=== PATIENT | male | born 1975 | race Caucasian/White ===

== ENCOUNTER 2022-09-15 23:51 | Inpatient (IN) | payer MEDICAID, OTHER ==
[~2022-09-15] VITALS: Ht 165.1 cm; Wt 65.8 kg
[2022-09-15 23:51] VITALS: BP 126/84
[2022-09-16 00:38] VITALS: BP 126/84
[2022-09-16 07:49] LABS: HEMATOCRIT. 40.9 % (42.0-52.0); HEMOGLOBIN. 14.1 g/dL (14.0-18.0); MEAN CORPUSCULAR HEMOGLOBIN 32.6 pg (28.0-32.0); MEAN CORPUSCULAR VOLUME 94.4 fL (80.0-94.0); MEAN PLATELET VOLUME 10.2 fl (7.4-10.4); PLATELET 196 x1000/uL (130-400); RED BLOOD CELL COUNT 4.33 mill/uL (4.7-6.1); RED CELL DISTRIBUTION WIDTH 13.1 % (11.6-14.6)
[2022-09-16 07:54] VITALS: BP 128/81
[2022-09-16 08:04] LABS: CHLORIDE 106 mEq/L (98-107)
[2022-09-16] MEDS: THIAMINE HCL 100MG TABLET PO SCH (08:40)
[2022-09-16] MEDS: GABAPENTIN 300MG CAPSULE PO SCH ×3 (08:40→16:19)
[2022-09-16] MEDS: AMLODIPINE 5MG TABLET PO SCH (08:41)
[2022-09-16] MEDS: HYDROCORTISONE 1% CREAM 30GM TOP SCH ×2 (08:45→22:05)
[2022-09-16] MEDS ORDERED: HEPARIN 5000 UNITS/ML VIAL SUBCUT SCH ×2 (09:00)
[2022-09-16 09:35] LABS: PLATELET ESTIMATE NORMAL
[2022-09-16 20:00] VITALS: BP 108/77
[2022-09-17 07:47] VITALS: BP 134/87
[2022-09-17] MEDS: HYDROCORTISONE 1% CREAM 30GM TOP SCH ×2 (09:33→21:16)
[2022-09-17] MEDS: THIAMINE HCL 100MG TABLET PO SCH (09:34)
[2022-09-17] MEDS: AMLODIPINE 5MG TABLET PO SCH (09:34)
[2022-09-17] MEDS: GABAPENTIN 300MG CAPSULE PO SCH ×3 (09:34→18:47)
[2022-09-17 19:33] VITALS: BP 111/78
[2022-09-18 08:00] VITALS: BP 116/73
[2022-09-18] MEDS: THIAMINE HCL 100MG TABLET PO SCH (09:44)
[2022-09-18] MEDS: AMLODIPINE 5MG TABLET PO SCH (09:45)
[2022-09-18] MEDS: DOCUSATE SODIUM 100MG CAPSULE PO SCH ×2 (09:45→17:58)
[2022-09-18] MEDS: GABAPENTIN 300MG CAPSULE PO SCH ×3 (09:45→17:58)
[2022-09-18] MEDS: HYDROCORTISONE 1% CREAM 30GM TOP SCH ×2 (10:25→20:55)
[2022-09-18] MEDS: LACTULOSE 20G/30ML UDC PO PRN (12:44)
[2022-09-18] MEDS: BISACODYL 5MG TABLET PO PRN (18:20)
[2022-09-18 20:00] VITALS: BP 120/75
[2022-09-19 07:48] VITALS: BP 110/71
[2022-09-19] MEDS: THIAMINE HCL 100MG TABLET PO SCH (10:31)
[2022-09-19] MEDS: GABAPENTIN 300MG CAPSULE PO SCH ×3 (10:31→18:43)
[2022-09-19] MEDS: BISACODYL 5MG TABLET PO PRN (10:31)
[2022-09-19] MEDS: DOCUSATE SODIUM 100MG CAPSULE PO SCH ×2 (10:31→18:44)
[2022-09-19] MEDS: AMLODIPINE 5MG TABLET PO SCH (10:36)
[2022-09-19] MEDS: HYDROCORTISONE 1% CREAM 30GM TOP SCH ×2 (10:36→21:53)
[2022-09-19 19:37] VITALS: BP 123/74
[2022-09-20] MEDS: THIAMINE HCL 100MG TABLET PO SCH (10:18)
[2022-09-20] MEDS: GABAPENTIN 300MG CAPSULE PO SCH ×3 (10:18→19:17)
[2022-09-20] MEDS: DOCUSATE SODIUM 100MG CAPSULE PO SCH ×2 (10:18→19:17)
[2022-09-20] MEDS: AMLODIPINE 5MG TABLET PO SCH (10:18)
[2022-09-20] MEDS: HYDROCORTISONE 1% CREAM 30GM TOP SCH ×2 (10:21→20:37)
[2022-09-20 19:57] VITALS: BP 121/70
[2022-09-20] MEDS: ENOXAPARIN 30MG/0.3ML SYR SUBCUT SCH (20:36)
[2022-09-21 08:00] VITALS: BP 106/68
[2022-09-21] MEDS: GABAPENTIN 300MG CAPSULE PO SCH ×3 (09:00→17:55)
[2022-09-21] MEDS: AMLODIPINE 5MG TABLET PO SCH (09:00)
[2022-09-21] MEDS: THIAMINE HCL 100MG TABLET PO SCH (09:12)
[2022-09-21] MEDS: DOCUSATE SODIUM 100MG CAPSULE PO SCH ×2 (09:16→17:55)
[2022-09-21] MEDS: HYDROCORTISONE 1% CREAM 30GM TOP SCH ×2 (09:18→20:27)
[2022-09-21 09:45] LABS: BASOPHILS % 0.9 % (0.0-2.0); EOSINOPHILS % 1.7 % (0.0-5.0); HEMATOCRIT. 42.2 % (42.0-52.0); HEMOGLOBIN. 14.7 g/dL (14.0-18.0); LYMPHOCYTES % 25.8 % (20.0-50.0); MEAN CORPUSCULAR HEMOGLOBIN 32.7 pg (28.0-32.0); MEAN PLATELET VOLUME 10.3 fl (7.4-10.4); MONOCYTES % 6.8 % (2.0-8.0); NEUTROPHILS % 64.8 % (40.0-76.0); PLATELET 215 x1000/uL (130-400); RED BLOOD CELL COUNT 4.49 mill/uL (4.7-6.1); RED CELL DISTRIBUTION WIDTH 12.9 % (11.6-14.6)
[2022-09-21 09:59] LABS: CHLORIDE 102 mEq/L (98-107)
[2022-09-21 20:00] VITALS: BP 114/85
[2022-09-21] MEDS: ENOXAPARIN 30MG/0.3ML SYR SUBCUT SCH (20:26)
[2022-09-22 08:00] VITALS: BP 119/82
[2022-09-22] MEDS ORDERED: THIA100T72 PO (09:22)
[2022-09-22] MEDS ORDERED: AMLO5TAB88 PO (09:22)
[2022-09-22] MEDS: THIAMINE HCL 100MG TABLET PO SCH (10:02)
[2022-09-22] MEDS: LACTULOSE 20G/30ML UDC PO PRN (10:02)
[2022-09-22] MEDS: GABAPENTIN 300MG CAPSULE PO SCH ×2 (10:02→13:40)
[2022-09-22] MEDS: DOCUSATE SODIUM 100MG CAPSULE PO SCH (10:02)
[2022-09-22] MEDS: HYDROCORTISONE 1% CREAM 30GM TOP SCH (10:06)
[2022-09-22] MEDS: AMLODIPINE 5MG TABLET PO SCH (10:06)
[2022-09-22 13:53] VITALS: BP 119/82
== END 2022-09-22 14:30 | disposition home health service (06) | DRG 44 ==
PROVIDERS: ADMIT Psychiatry & Neurology Neurology; ATTEND Hospitalist
DX: I61.9 Nontraumatic intracerebral hemorrhage, unspecified (principal); I50.20 Unspecified systolic (congestive) heart failure; I11.0 Hypertensive heart disease with heart failure; E78.5 Hyperlipidemia, unspecified; F10.10 Alcohol abuse, uncomplicated; R29.810 Facial weakness; R47.01 Aphasia; Z60.2 Problems related to living alone; R53.1 Weakness; R74.01 Elevation of levels of liver transaminase levels; Z79.899 Other long term (current) drug therapy
CPT/HCPCS: 36415; 80053; 80061; 82962; 85025; 92523; 92610; 93970; 97110; 97112; 97116; 97150; 97162; 97166; 97530; 97535; J1644; J1650